=== PATIENT | male | born 1980 | race Caucasian/White ===

== ENCOUNTER → 2022-05-17 | Outpatient (CLI) | payer BC ==
[2022-05-17 14:44] LABS: Basophils # (A) 0.03 X 10*3/uL (0.00-0.10); Basophils % (A) 0.5 %; Eosinophils # (A) 0.16 X 10*3/uL (0.04-0.35); Eosinophils % (A) 2.5 %; HCT 37.6 % (39.6-50.0); HGB 12.5 g/dL (13.0-17.0); Immature Grans, Automated 0.3 %; Lymphocytes % (A) 26.9 %; MCH 29.9 pg (27.0-32.0); MCHC 33.2 g/dL (32.0-37.0); Mean Platelet Volume 9.8 fL (9.5-12.2); Monocytes % (A) 7.9 %; NRBC Per 100 WBC 0 /100 WBCS (0.0-0.0); Neutrophils # (A) 3.92 X 10*3/uL (1.80-7.70); Neutrophils % (A) 61.9 %; Platelet Count 215 X 10*3/uL (140-440); RBC 4.18 X 10*6/uL (4.40-5.60); RDW 12.4 % (11.5-14.5); WBC 6.33 X 10*3/uL (4.50-10.00)
[2022-05-17 18:34] LABS: African American GFR (CKD) 102.9 (60.0-200.0); Albumin 4.9 g/dL (3.8-4.9); Albumin/Globulin Ratio 2.09 (1.60-3.17); Anion Gap 10.3 mmol/L (10.00-18.00); BUN/Creat Ratio 14.23 Ratio (12.00-20.00); Blood Urea Nitrogen 14.8 mg/dL (9.0-27.0); Carbon Dioxide 28.9 mmol/L (20.0-27.5); Globulin 2.4 g/dL (1.6-3.3); Non-African American GFR(CKD) 88.8 (60.0-200.0); Potassium 4.3 mmol/L (3.5-5.5); Prealbumin 33.9 mg/dL (18.0-42.0); Total Bilirubin 0.8 mg/dL (0.30-1.20); Total Protein 7.3 g/dL (6.2-8.2)
== END | disposition home or self-care (01) ==
LOC: LABWHC1 10:30
PROVIDERS: ATTEND Podiatrist
DX: E78.5 Hyperlipidemia, unspecified (principal); L97.822 Non-pressure chronic ulcer of other part of left lower leg with fat layer exposed
CPT/HCPCS: 36415; 80053; 84134; 85025